=== PATIENT | male | born 1995 | race Caucasian/White ===

== ENCOUNTER 2016-10-03 22:19 | Emergency (ER) | payer MEDICARE, MEDICAID ==
[2016-10-03] MEDS ORDERED: PROPARACAINE HCL OPTH 15ML BTL OPTH ONE (22:21)
--- NOTE | 2016-10-03 22:43 | Emergency Department Record ---
History of Present Illness - General Chief complaint: Eye Problem Stated complaint: FO IN LT EYE Time Seen by Provider: 10/03/16 22:39 Source: Patient Mode of Arrival: Ambulatory Limitations: No limitations Travel/Exposure to [facility] Within 21 Days of Symptoms: No - History of Present Illness Initial comments: 20 yo male presents to ED with a CC of irritation to the left eye that occurred yesterday while working on a friend's roof. Patient denies direct trauma, but reports he may have gotten an object in the eye. Patient reports decreased visual acuity to the left eye since , denies change in his baseline vision. Patient also reports history of CP. MD chief complaint: Eye pain, Foreign body Onset/Timin -: Days(s) Onset Description: Gradual Location: Left eye Place: Home If Injury: None Eye Symptoms: Pain Severity: Mild Severity scale (1-10): 10 If Pain, Quality: Other Consistency: Constant Associated Symptoms: None Treatments Prior to Arrival: OTC eye drops - Related Data Visual acuity (R) = 20/: 30 With correction: Yes Home Medications Medication Instructions Recorded Confirmed Last Taken Omeprazole 20 mg PO QD cap 06/14/16 Unknown Allergies Allergy/AdvReac Type Severity Reaction Status Date / Time morphine Allergy ANAPHYLAXIS Verified 10/03/16 22:31 Travel Screening - Travel/Exposure Within Last 30 Days Have you traveled within the last 30 days?: No - Travel/Exposure Within Last Year Have you traveled outside the [place] in the last year?: No - Additonal Travel Details Have you been exposed to anyone with a communicable illness?: No - Travel Symptoms Symptom Screening: None Review of Systems Constitutional: Denies: Chills, Fever, Malaise, Night sweats Eyes: Reports: Eye pain, Photophobia. Denies: Eye discharge ENT: Denies: Congestion, Ear pain, Epistaxis Respiratory: Denies: Cough, Dyspnea Cardiovascular: Denies: Chest pain, Dyspnea on exertion Endocrine: Denies: Fatigue, Heat or cold intolerance Gastrointestinal: Denies: Abdominal pain, Nausea, Vomiting Genitourinary: Denies: Incontinence, Retention Musculoskeletal: Denies: Arthralgia, Back pain Skin: Denies: Bruising, Change in color Neurological: Denies: Abnormal gait, Confusion, Headache, Seizure Psychiatric: Denies: Anxiety Hematological/Lymphatic: Denies: Anemia, Blood Clots Past Medical History - SOCIAL HISTORY Smoking Status: Never smoker Alcohol Use: None Drug Use: None - RESPIRATORY Hx Respiratory Disorders: Yes Hx Asthma: Yes Comment:: bilat chest tubes as infant - CARDIOVASCULAR Hx Cardio Disorders: No - NEURO Hx Neuro Disorders: Yes Comment:: grade 4 interventricular hemorrhage as infant - GI Hx GI Disorders: Yes Hx Reflux: Yes - Hx Genitourinary Disorders: No - ENDOCRINE Hx Endocrine Disorders: No - MUSCULOSKELETAL Hx Musculoskeletal Disorders: Yes Comment:: cerebral palsey - PSYCH Hx Psych Problems: No - HEMATOLOGY/ONCOLOGY Hx Hematology/Oncology Disorders: No Family Medical History Any Significant Family History?: No Physical Exam - General General Appearance: Alert, Oriented x3, Cooperative, No acute distress Limitations: No limitations - Head Head exam: Atraumatic, Normocephalic, Normal inspection Head exam detail: negative: Abrasion, Contusion, Guerrero's sign, General tenderness, Hematoma, Laceration - Eye Eye exam: Conjunctival injection. negative: Periorbital swelling, Periorbital tenderness, Scleral icterus With correction: Yes - ENT Ear exam: negative: Auricular hematoma, Auricular trauma Nasal Exam: negative: Active bleeding, Discharge, Dried blood, Foreign body Mouth exam: negative: Drooling, Laceration, Muffled voice, Tongue elevation - Neck Neck exam: Normal inspection. negative: Meningismus, Tenderness - Respiratory Respiratory exam: Normal lung sounds bilaterally. negative: Rales, Respiratory distress, Rhonchi, Stridor - Cardiovascular Cardiovascular Exam: Regular rate, Normal rhythm, Normal heart sounds - GI/Abdominal GI/Abdominal exam: Soft. negative: Rebound, Rigid, Tenderness - Rectal Rectal exam: Deferred - exam: Deferred - Extremities Extremities exam: Normal inspection. negative: Calf tenderness, Pedal edema, Tenderness - Back Back exam: Denies: CVA tenderness (R), CVA tenderness (L) - Neurological Neurological exam: Alert, Normal gait, Oriented X3 - Psychiatric Psychiatric exam: Normal affect, Normal mood - Skin Skin exam: Normal color. negative: Abrasion Type of lesion: negative: abrasion Course Vital Signs 10/03/16 10/03/16 22:25 22:33 Temperature 98.3 F Pulse Rate 75 Respiratory 20 Rate Blood Pressure 153/84 Pulse Ox 98 - Reevaluation(s) Reevaluation #1: 10/03/16 22:48 Eye Examination: On Wood's lamp examination, patient has a small amount of uptake to the 11 o'clock position. Small foreign body identified and removed from underneath the left upper eye lid. Will initiate treatment with Gentamicin with instructions to follow-up with his hearing instrument specialist in 1-3 days as directed. Patient verbalizes understanding of all instructions. Disposition Disposition: Discharge Clinical Impression: Corneal FB (foreign body) Qualifiers: Encounter type: initial encounter Laterality: left Qualified Code(s): T15.02XA - Foreign body in cornea, left eye, initial encounter Disposition: Home, Self-Care Condition: (2) Stable Instructions: Eye Foreign Body (ED) Additional Instructions: Return to ED if your symptoms worsen or if you have any concerns. Gentamycin as directed. Follow-up with your eye doctor in 1-3 days as directed. Forms: Patient Portal Access Time of Disposition: 22:43
[2016-10-03] MEDS ORDERED: GENTAMICIN SULFATE 0.3% OPTH 5 ML BTL OPTH SCH (22:45)
== END 2016-10-03 22:58 | disposition home or self-care (01) ==
LOC: ER 22:19
DX: T15.02XA Foreign body in cornea, left eye, initial encounter (principal); Y93.H3 Activity, building and construction; Y92.008 Other place in unspecified non-institutional (private) residence as the place of occurrence of the external cause
CPT/HCPCS: 65220; 99283

== ENCOUNTER 2016-11-10 14:43 | Emergency (ER) | payer MEDICARE, MEDICAID ==
--- NOTE | 2016-11-10 18:10 | Emergency Department Record ---
History of Present Illness - General Chief complaint: Rash Stated complaint: RASH AND SWELLING ON HIS GENITALS Time Seen by Provider: 11/10/16 18:02 Mode of Arrival: Ambulatory - History of Present Illness Initial comments: rash on penis and buttock and it has been presented 2 days ago and and his mom tried benadryl and hydrocortisone Onset/Timin -: Days(s) Location: RUE, Genitals, LLE Severity: Moderate Improves with: Medication, Topical medication Worsens with: None Context: None Associated symptoms: Itching Treatments Prior to Arrival: Benadryl, Corticosteroid - Related Data Home Medications Medication Instructions Recorded Confirmed Last Taken Omeprazole 20 mg PO QD cap 06/14/16 11/10/16 11/10/16 Previous Rx's Medication Instructions Recorded Clotrimazole/Betamethasone Dip 1 gm TP TID #45 cream..g. 11/10/16 [Lotrisone Cream] Allergies Allergy/AdvReac Type Severity Reaction Status Date / Time morphine Allergy ANAPHYLAXIS Verified 11/10/16 16:22 Travel Screening - Travel/Exposure Within Last 30 Days Have you traveled within the last 30 days?: No - Travel Symptoms Symptom Screening: None Review of Systems Reviewed: No additional complaints except as noted below Constitutional: Reports: As per HPI. Denies: Chills, Fever, Malaise, Night sweats, Weakness, Weight change Eyes: Reports: As per HPI. Denies: Eye discharge, Eye pain, Photophobia, Vision change ENT: Reports: As per HPI. Denies: Congestion, Dental pain, Ear pain, Epistaxis , Hearing loss, Throat pain Respiratory: Reports: As per HPI. Denies: Cough, Dyspnea, Hemoptysis, Stridor, Wheezes Cardiovascular: Reports: As per HPI. Denies: Arrhythmia, Chest pain, Dyspnea on exertion, Edema, Murmurs, Orthopnea, Palpitations, Paroxysmal nocturnal dyspnea, Rheumatic Fever, Syncope Endocrine: Reports: As per HPI. Denies: Fatigue, Heat or cold intolerance, Polydipsia, Polyuria Gastrointestinal: Reports: As per HPI. Denies: Abdominal pain, Constipation, Diarrhea, Hematemesis, Hematochezia, Melena, Nausea, Vomiting Genitourinary: Reports: As per HPI. Denies: Dysuria, Frequency, Hematuria, Incontinence, Retention, Testicular pain, Testicular mass, Urgency Musculoskeletal: Reports: As per HPI. Denies: Arthralgia, Back pain, Gout, Joint swelling, Myalgia, Neck pain Skin: Reports: As per HPI. Denies: Bruising, Change in color, Change in hair/ nails, Lesions, Pruritus, Rash Neurological: Reports: As per HPI. Denies: Abnormal gait, Confusion, Headache, Numbness, Paresthesias, Seizure, Tingling, Tremors, Vertigo, Weakness Psychiatric: Reports: As per HPI. Denies: Anxiety, Auditory hallucinations, Depression, Homicidal thoughts, Suicidal thoughts, Visual hallucinations Hematological/Lymphatic: Reports: As per HPI. Denies: Anemia, Blood Clots, Easy bleeding, Easy bruising, Swollen glands Past Medical History - SOCIAL HISTORY Smoking Status: Never smoker Alcohol Use: Occasional Alcohol Use Comment: 2-3 beers a day Drug Use: None - RESPIRATORY Hx Respiratory Disorders: Yes Hx Asthma: Yes Comment:: bilat chest tubes as infant - CARDIOVASCULAR Hx Cardio Disorders: No - NEURO Hx Neuro Disorders: Yes Comment:: grade 4 interventricular hemorrhage as infant - GI Hx GI Disorders: Yes Hx Reflux: Yes - Hx Genitourinary Disorders: No - ENDOCRINE Hx Endocrine Disorders: No - MUSCULOSKELETAL Hx Musculoskeletal Disorders: Yes Comment:: cerebral palsy - PSYCH Hx Psych Problems: No - HEMATOLOGY/ONCOLOGY Hx Hematology/Oncology Disorders: No Family Medical History Any Significant Family History?: Yes Hx Diabetes: Grandparents Hx Heart Disease: Father Hx Kidney Disease: Mother Hx Stroke: Grandparents Physical Exam - General General Appearance: Alert, Oriented x3, Cooperative, No acute distress - Head Head exam: Normal inspection - Eye Eye exam: Normal appearance, PERRL Pupils: Normal accommodation - ENT ENT exam: Normal exam, Mucous membranes moist, Normal external ear exam, Normal orophraynx, TM's normal bilaterally Ear exam: Normal external inspection. negative: External canal tenderness Nasal Exam: Normal inspection. negative: Discharge, Sinus tenderness Mouth exam: Normal external inspection, Tongue normal Teeth exam: Normal inspection. negative: Dental caries Throat exam: Normal inspection. negative: Tonsillar erythema, Tonsillar exudate - Neck Neck exam: Normal inspection, Full ROM. negative: Tenderness - Respiratory Respiratory exam: Normal lung sounds bilaterally. negative: Respiratory distress - Cardiovascular Cardiovascular Exam: Regular rate, Normal rhythm, Normal heart sounds - GI/Abdominal GI/Abdominal exam: Soft, Normal bowel sounds. negative: Tenderness - Rectal Rectal exam: Deferred - exam: Deferred - Extremities Extremities exam: Normal inspection, Full ROM, Normal capillary refill. negative: Tenderness - Back Back exam: Reports: Normal inspection, Full ROM. Denies: Muscle spasm, Rash noted, Tenderness - Neurological Neurological exam: Alert, Normal gait, Oriented X3, Reflexes normal - Psychiatric Psychiatric exam: Normal affect, Normal mood - Skin Skin exam: Rash (red and irritated and spraying black flag fogger for mosquitos) Course Vital Signs 11/10/16 16:24 Temperature 98.2 F Pulse Rate 72 Respiratory 18 Rate Blood Pressure 128/78 Pulse Ox 98 Disposition Clinical Impression: Tinea cruris Disposition: Home, Self-Care Condition: (1) Good Instructions: Acute Rash (ED), Jock Itch (ED) Additional Instructions: follow up with family in 5 days Prescriptions: Clotrimazole/Betamethasone Dip [Lotrisone Cream] 1 gm TP TID #45 cream..g. Forms: Patient Portal Access Time of Disposition: 18:11 Quality - Quality Measures Quality Measures: N/A - Blood Pressure Screening Blood Pressure Classification: Pre-Hypertensive BP Reading Systolic Measurement: 128 Diastolic Measurement: 78 Screening for High Blood Pressure: < Pre-Hypertensive BP, F/U Documented > [ G8950] Pre-Hypertensive Follow-up Interventions: Follow-up with rescreen every year.
== END 2016-11-10 18:30 | disposition home or self-care (01) ==
LOC: ER 14:43
DX: B35.6 Tinea cruris (principal)
CPT/HCPCS: 99282

== ENCOUNTER 2019-01-13 23:22 | Emergency (ER) | payer MEDICARE, MEDICAID ==
[2019-01-13] MEDS ORDERED: IPRATROPIUM/ALBUTEROL (0.5MG/3MG) NEB INH ONE (23:35)
--- NOTE | 2019-01-13 23:39 | Emergency Department Record ---
History of Present Illness - General Chief Complaint: Shortness of breath Stated Complaint: SOB Time Seen by Provider: 01/13/19 23:32 Source: Patient, Family Mode of Arrival: Ambulatory Limitations: No limitations - History of Present Illness Initial Comments: The patient has been drinking alcohol this evening and also smoking marijuana and then a few hours ago developed some SOB. Presently it seems that is now better. He also has had an intermittently mild productive cough recently. The patient does have a hx of mild asthma. He denies any CP, fever or chills. MD Complaint: Cough, Shortness of breath Onset/Timin -: Hour(s) Associated Symptoms: Denies other symptoms - Related Data Allergies Allergy/AdvReac Type Severity Reaction Status Date / Time morphine Allergy ANAPHYLAXIS Unverified 10/30/18 15:11 Travel Screening - Travel/Exposure Within Last 30 Days Have you traveled within the last 30 days?: No - Travel/Exposure Within Last Year Have you traveled outside the [place] in the last year?: No - Additonal Travel Details Have you been exposed to anyone with a communicable illness?: No - Travel Symptoms Symptom Screening: None Review of Systems Constitutional: Denies: Chills, Fever Eyes: Denies: Eye discharge ENT: Reports: Congestion Respiratory: Reports: Cough, Dyspnea Cardiovascular: Denies: Chest pain Past Medical History - SOCIAL HISTORY Smoking Status: Never smoker Alcohol Use: Occasional Drug Use: Heavy Drug Use Detail:: Marijuana - RESPIRATORY Hx Respiratory Disorders: Yes Hx Asthma: Yes Comment:: bilat chest tubes as infant - CARDIOVASCULAR Hx Cardio Disorders: No - NEURO Hx Neuro Disorders: Yes Comment:: grade 4 interventricular hemorrhage as - GI Hx GI Disorders: Yes Hx Reflux: Yes - Hx Genitourinary Disorders: No - ENDOCRINE Hx Endocrine Disorders: No - MUSCULOSKELETAL Hx Musculoskeletal Disorders: Yes Comment:: cerebral palsy - PSYCH Hx Psych Problems: No - HEMATOLOGY/ONCOLOGY Hx Hematology/Oncology Disorders: No Family Medical History Any Significant Family History?: Yes Hx Diabetes: Grandparents Hx Heart Disease: Father Hx Kidney Disease: Mother Hx Stroke: Grandparents Physical Exam - General General Appearance: Alert, Oriented x3, Cooperative, No acute distress - Head Head exam: Atraumatic, Normocephalic - Eye Eye exam: Normal appearance, PERRL - ENT Throat exam: Normal inspection. negative: Tonsillar erythema, Tonsillar exudate - Neck Neck exam: Normal inspection, Full ROM. negative: Tenderness - Respiratory Respiratory exam: Normal lung sounds bilaterally. negative: Respiratory distress, Rhonchi, Stridor, Wheezes - Cardiovascular Cardiovascular Exam: Regular rate, Normal rhythm, Normal heart sounds - GI/Abdominal GI/Abdominal exam: Soft, Normal bowel sounds. negative: Tenderness - Extremities Extremities exam: Normal inspection, Full ROM, Normal capillary refill. negative: Tenderness - Neurological Neurological exam: Alert, Normal gait. negative: Abnormal gait, Motor sensory deficit - Skin Skin exam: negative: Rash Course Vital Signs 01/13/19 23:25 Temperature 98.9 F Pulse Rate [ 91 H Pulse Ox Probe] Respiratory 24 Rate Blood Pressure 140/97 [Left Arm] Pulse Ox 98 - Reevaluation(s) Reevaluation #1: The patient is doing very well at this time. He is up walking with no difficulty and has no SOB, STEFANIA, or CP. The patient states he is not really coughing much up . I did explain to him that it appears he most likely has a viral URI. He does have an appointment with his PCP for tomorrow and is encouraged to keep it. 01/14/19 00:01 Medical Decision Making - Data Complexity MDM Data: X-Ray Ordered and/or Reviewed - Radiology Data -: Radiology Exam Interpreted by Myself (CXR: Neg for any acute changes.) Disposition Disposition: Discharge Clinical Impression: Asthma Qualifiers: Asthma severity: mild Asthma persistence: intermittent Asthma complication type: unspecified Qualified Code(s): J45.20 - Mild intermittent asthma, uncomplicated Disposition: Home, Self-Care Condition: (2) Stable Instructions: Asthma (ED) Additional Instructions: Please continue your regular medicines and please keep the appointment with your doctor for tomorrow. Return to the ER for any worsening issues and stop smoking marijuana. Forms: Patient Portal Access Time of Disposition: 00:03 Quality - Quality Measures Quality Measures: N/A - Blood Pressure Screening View Details: Yes Does Patient Have Any of the Following: No Blood Pressure Classification: Hypertensive Reading Systolic Measurement: 140 Diastolic Measurement: 97 Screening for High Blood Pressure: < First Hypertensive BP, F/U Documented > [G8950] First Hypertensive Follow-up Interventions: Referral to alternative/primary care provider.
--- NOTE | 2019-01-16 07:26 | RADIOLOGY REPORT ---
EXAM: CHEST, TWO VIEWS HISTORY: COUGH. SHORTNESS OF BREATH. TECHNIQUE: Upright PA and lateral views of the chest were obtained. Comparison: Right ribs with PA chest dated 10/30/18. FINDINGS: The cardiomediastinal silhouette remains normal in size and configuration. The pulmonary vasculature is nondilated. The lungs and pleural spaces are clear. No acute osseous abnormality identified. IMPRESSION: NO RADIOGRAPHIC EVIDENCE OF ACUTE CARDIOPULMONARY DISEASE. JOB NUMBER: [id number] MTDD
== END 2019-01-14 00:08 | disposition home or self-care (01) ==
LOC: ER 23:22
DX: J45.20 Mild intermittent asthma, uncomplicated (principal); R06.02 Shortness of breath; R05 Cough
CPT/HCPCS: 71046; 94640; 99284